=== PATIENT | male | born 1935 | race Caucasian/White ===

== ENCOUNTER 2023-07-09 19:23 | Inpatient (IN) | payer MEDICARE, OTHER, SELFPAY ==
--- NOTE | ~2023-07-09 | CT_ITS ---
EXAMINATION: CT abdomen pelvis wo con DATE: 07/10/2023 00:28 INDICATION: Abdominal pain and distention. Gastrointestinal hemorrhage. TECHNIQUE: Computed tomography (CT) of the abdomen and pelvis was performed without intravenous contr ast. Automated exposure control and iterative reconstruction technique were employed. The dose-length product was 1112.77 mGy-cm. COMPARISON: None. FINDINGS: The visualized portions of the lung bases demonstrate mild atelectasis. A calcified right l raymond nodule and calcified right hilar lymph nodes are consistent with old granulomatous disease. The n asogastric tube is folded on itself in the esophagus. Cardiomegaly is noted. No pericardial effusion. The liver and gallbladder are normal. Calcifications in the spleen are consistent with old granuloma tous disease. The stomach is distended. The pancreas, adrenal glands, and kidneys are normal. The pro state is mildly enlarged. There are scattered diverticula in the colon. There is wall thickening thro ughout the colon. The appendix is not visualized. There is a large volume of ascites. There are no pa thologically enlarged lymph nodes. Aortic atherosclerosis is noted. There is a left inguinal hernia c ontaining fat. Body wall edema is noted. There is mild thoracic spondylosis and severe lumbar spondyl osis. There are chronic compression fractures of T11 and T7. IMPRESSION: 1. Large volume of ascites. 2. Wall thickening in the colon, which may be colitis or interstitial edema. 3. Nasogastric tube folded on itself in the esophagus. 4. Distended stomach. Reviewed, dictated and finalized at location A.
--- NOTE | ~2023-07-09 | XR_ITS ---
EXAMINATION: XR chest 1V portable DATE: 07/09/2023 23:27 INDICATION: Nausea and vomiting. TECHNIQUE: A single frontal view of the chest was obtained. COMPARISON: Chest single view 07/09/2017, CT abdomen and pelvis 07/09/2023 FINDINGS: A calcified right lung nodule and calcified right hilar lymph nodes are consistent with old granulomatous disease. There is mild atelectasis in the lower lung zones. No pleural effusion or pne umothorax. Cardiomegaly is noted. The nasogastric tube is folded on itself in the esophagus with tip in the pharynx. IMPRESSION: 1. Mild atelectasis in the lower lung zones. 2. Cardiomegaly. 3. Nasogastric tube folded on itself in the esophagus with tip in the pharynx. Reviewed, dictated and finalized at location A.
[2023-07-09 19:32] VITALS: BP 113/99; PULSE 88; RESP 12; TEMP 36; O2SAT 100
[2023-07-09 20:04] LABS: Basophils Percent Auto 0.3 % (0.2-1.2); Hematocrit 31.8 % (42.0-52.0); Hemoglobin 10.2 g/dL (14.0-18.0); Immature Granulocyte Percent A 0.7 % (0-0.5); Lymphocytes Absolute Auto 1.34 K/mm3 (0.9-3.2); Lymphocytes Percent Auto 9.5 % (18.3-44.2); Mean Corpuscular HGB Conc 32.1 g/dl (32-36); Mean Corpuscular Volume 102.9 fl (80-100); Mean Platelet Volume 9.8 fl (7.4-10.4); Monocytes Absolute Auto 1.2 K/mm3 (0.1-0.6); Monocytes Percent Auto 8.3 % (2.6-8.5); Neutrophils Absolute Auto 11.5 K/mm3 (1.3-6.7); Neutrophils Percent Auto 81.2 % (45.5-73.1); Platelet Count Result 250 k/mm3 (150-375); Red Blood Count 3.09 M/mm3 (4.6-6.20); Red Cell Distribution Width 15.8 % (11.5-14.5); White Blood Count 14.1 K/mm3 (4.5-10.0)
[2023-07-09 20:18] LABS: Albumin Level 3.3 g/dL (3.5-5.1); Alkaline Phosphatase 221 U/L (38-126); Anion Gap 15 mmol/L (8-16); Aspartate Amino Transferase 42 U/L (17-59); Bilirubin,Total 1.9 mg/dL (0.2-1.3); Blood Urea Nitrogen 40 mg/dL (9-20); Calcium 9.2 mg/dL (8.4-10.2); Carbon Dioxide 17 mmol/L (22-30); Chloride 101 mmol/L (98-107); Estimated Glomerular Filt Rate > 60; Glucose 154 mg/dL (65-110); Lipase 27 U/L (23-300); Potassium 4.3 mmol/L (3.4-5.0); Sodium 133 mmol/L (137-145)
[2023-07-09 20:26] LABS: Alanine Aminotransferase 44 U/L (6-50)
[2023-07-09 20:55] VITALS: BP 130/46; PULSE 91; RESP 23; TEMP 36.8; O2SAT 99
--- NOTE | 2023-07-09 20:58 | PC.NURSE ---
Daughter is at bedside and is medical POA. Patient was asked if he had to urinate and patient stated no. Patient and POA were then asked if a straight catheter could be done to obtain the urine. POA declined the straight catheter.
[2023-07-09] MEDS: PANTOPRAZOLE SODIUM IV 40 MG VIAL 80 MG (23:12)
[2023-07-09] MEDS: SODIUM CHLORIDE 0.9% IV 1,000 ML 999 ML (23:12)
--- NOTE | 2023-07-09 23:19 | PC.NURSE ---
Daughter/POA consents to a straight catheter for urine specimen.
[2023-07-09 23:21] LABS: Alanine Aminotransferase 43 U/L (6-50); Albumin Level 2.8 g/dL (3.5-5.1); Alkaline Phosphatase 171 U/L (38-126); Anion Gap 18 mmol/L (8-16); Aspartate Amino Transferase 44 U/L (17-59); Bilirubin,Total 1.6 mg/dL (0.2-1.3); Blood Urea Nitrogen 44 mg/dL (9-20); Calcium 8.6 mg/dL (8.4-10.2); Carbon Dioxide 14 mmol/L (22-30); Chloride 102 mmol/L (98-107); Estimated Glomerular Filt Rate > 60; Glucose 181 mg/dL (65-110); Lipase 21 U/L (23-300); Potassium 4.8 mmol/L (3.4-5.0); Sodium 134 mmol/L (137-145)
[2023-07-09 23:22] LABS: Troponin I 0.031 ng/mL (0.000-0.034)
[2023-07-09 23:24] LABS: Lactic Acid Reflex 10.8 mmol/L (0.7-2.0)
[2023-07-09 23:38] LABS: Basophils Percent Auto 0.2 % (0.2-1.2); Hematocrit 26.1 % (42.0-52.0); Hemoglobin 8.4 g/dL (14.0-18.0); Immature Granulocyte Absolute 0.12 K/mm3 (0.00-0.031); Immature Granulocyte Percent A 0.9 % (0-0.5); Lymphocytes Absolute Auto 1.13 K/mm3 (0.9-3.2); Lymphocytes Percent Auto 8.7 % (18.3-44.2); Mean Corpuscular HGB Conc 32.2 g/dl (32-36); Mean Corpuscular Hemoglobin 32.8 pg (26-34); Mean Platelet Volume 9.9 fl (7.4-10.4); Monocytes Absolute Auto 0.9 K/mm3 (0.1-0.6); Monocytes Percent Auto 7.3 % (2.6-8.5); Neutrophils Absolute Auto 10.7 K/mm3 (1.3-6.7); Neutrophils Percent Auto 82.9 % (45.5-73.1); Platelet Count Result 221 k/mm3 (150-375); Red Blood Count 2.56 M/mm3 (4.6-6.20); Red Cell Distribution Width 15.8 % (11.5-14.5)
--- NOTE | 2023-07-10 | PC.NURSE ---
Per EDP Dr. Sarmiento NG tube and straight urinary catheter not needed due to patient going comfort care.
--- NOTE | 2023-07-10 00:02 | ED.GENADULT ---
HPI - General Adult General Chief complaint: Abdominal Pain Stated complaint: possible SBO Time Seen by Provider: 07/09/23 23:17 History of Present Illness HPI narrative: this is an 88-year-old male presenting ED with chief complaint of hematemesis. Patient is A&O x1 and does not recall any of the events leading up to his ER visit and has no complaints at this time. Per the patient's family he had an episode of hematemesis vomiting yesterday @ dinner. Today he has not eaten anything at all. Related Data Allergies Allergy/AdvReac Type Severity Reaction Status Date / Time No Known Allergies Allergy Unverified 07/09/17 18:41 [facility] Past Medical History Medical History Dementia Exam Narrative: APPEARANCE: Patient is pale/jaundice, A&O x1 confused and trying to get out of bed Head: atraumatic, dried red blood in the patient's mouth EYES: EOMI, NOSE: Atraumatic NECK: Trachea midline RESPIRATORY: No increased rate of breathing CARDIOVASCULAR: RRR, ABDOMINAL: distended, no guarding or rebound, rectal exam shows profuse melena MUSCULOSKELETAl: No obvious deformities NEURO: Alert. Moving 4/4 extremities SKIN:: Warm, dry. Normal color PSYCHIATRIC: Normal affect Course Vital Signs Vital signs: Vital Signs Temperature 96.8 F L 07/09/23 19:32 Pulse Rate 88 07/09/23 19:32 Respiratory Rate 12 07/09/23 19:32 Blood Pressure 113/99 H 07/09/23 19:32 Pulse Oximetry 100 07/09/23 19:32 Oxygen Delivery Room Air 07/09/23 19:32 Temperature 98.2 F 07/09/23 20:55 Pulse Rate 100 07/10/23 00:37 Respiratory Rate 22 H 07/10/23 00:37 Blood Pressure 102/57 L 07/10/23 00:37 Pulse Oximetry 94 07/10/23 00:37 Oxygen Delivery Room Air 07/09/23 19:32 Medical Decision Making [facility] Narrative Medical decision making narrative: -Presentation: 88-year-old male presenting with upper GI bleed. HGB downtrending. Lactic is 10.8. Ill appearing. Goals of care were discussed with the patient's daughter ([facility] POA [phone]) and . They do not believe that the patient would want any heroic interventions. In accordance with the patients and families wishes the patient has been made comfort care only. Patient will be admitted to the hospital for hospice/ care coordination. -DDX includes but is not limited to: Peptic ulcer disease, gastritis, esophageal varices, bowel perforation. -Co-morbidities complicating care: dementia, hypertension, diabetes -Social determinants of health: dementia, lives in [place] -Independent interpretation of studies: lactic 10.8. CT showed ascites and liver cirrhosis. Hemoglobin dropped from 10.2 to 8.4 over 2 hours. BUN 44. Likely from upper GI bleed. Chest x-ray unremarkable. Independent EKG interpretation: Rhythm AFib Rate [100], [place] -[normal], [place] -[normal], QRS [ wide], QTC [normal], T waves -[negative for concerning inversions], ST Segments - [Negative for concerning elevations] Final interpretations: AFib with RVR and right bundle-branch block. -Discussion of Management/Consultants: Pj-hospitalist -Interventions: 80 mg IV Protonix 1 L normal saline, 1 mg Dilaudid, 1 mg Ativan -Shared decision making / Disposition: patient will be admitted for Hospice/end of life care. Vital Signs Vital Signs: Vital Signs Temperature 96.8 F L 07/09/23 19:32 Pulse Rate 88 07/09/23 19:32 Respiratory Rate 12 07/09/23 19:32 Blood Pressure 113/99 H 07/09/23 19:32 Pulse Oximetry 100 07/09/23 19:32 Oxygen Delivery Room Air 07/09/23 19:32 Temperature 98.2 F 07/09/23 20:55 Pulse Rate 100 07/10/23 00:37 Respiratory Rate 22 H 07/10/23 00:37 Blood Pressure 102/57 L 07/10/23 00:37 Pulse Oximetry 94 07/10/23 00:37 Oxygen Delivery Room Air 07/09/23 19:32 Lab Data 07/09/23 22:30 07/09/23 22:30 Labs: Lab Results 07/09/23
[2023-07-10] MEDS: HYDROmorphone HCL INJ (*CRX) 1 MG/ML SYR IV PUSH (00:20)
[2023-07-10] MEDS: LORazepam INJ (*CRX) 2 MG/ML VIAL 1 MG IV PUSH ×2 (00:22→13:06)
--- NOTE | 2023-07-10 00:24 | PC.NURSE ---
Patient began vomiting. Notified EDP Dr. Sarmiento who verbally ordered 8mg Zofran IVP and 10mg Reglan IVP.
[2023-07-10] MEDS: ONDANSETRON INJ 4 MG/2 ML VIAL 8 MG IV PUSH (00:27)
[2023-07-10] MEDS: METOCLOPRAMIDE HCL INJ 10 MG/2 ML VIAL IV PUSH (00:34)
[2023-07-10 00:37] VITALS: BP 102/57; PULSE 100; RESP 22; O2SAT 94
--- NOTE | 2023-07-10 00:38 | PC.NURSE ---
Per EDP Dr. Guillermina santoyo blue kiran not needed as patient is comfort care.
--- NOTE | 2023-07-10 01:05 | PM.IMHP ---
H&P: HPI History of Present Illness Date/Time: 07/10/23 01:05 Chief Complaint: Vomiting Narrative: 80-year-old male with a past medical history of gout, dementia, neuropathy, diabetes essential hypertension, overactive bladder and BPH who presented to the ER from home in the company of family due to decreased oral intake and vomiting. The patient has not been eating as much for the last week. The family states that the patient will not complain about any symptoms. He is usually alert oriented x2 at best due to his dementia. She they state that he has is routine answers and he will always tell you that nothing is wrong. However today he refused eat breakfast in pushed the plate away from him. Then for lunch before he could eat anything he had several episodes of what sounds like moderate to large volume emesis. He was still denying any abdominal pain. The daughter and the are at bedside. The is only able to provide limited history. The daughter states that they did not contact her until this evening to states that he was not acting right. The daughter states that the patient has had a round belly at times during his life. But she thinks that his abdomen may be more distended than usual. CT scan was performed which demonstrated colonic diverticulosis, no diverticulitis, mild mucosal thickening in the transverse colon and underdistention versus mild nonspecific colitis. The stomach is distended with food products and no evidence of bowel obstruction. The patient's liver appeared cirrhotic with a moderate volume of ascites. The daughter denies any known history of cirrhosis. She reports the patient on a goes to the doctor 1 to 2 times a year and is relatively healthy. Patient ambulated into the ER with his relating walker. Shortly after arriving to the ER the patient had a moderate amount of black and bloody appearing emesis and he had a melenic bowel movement. Initial hemoglobin in the ER was 10.2 and after 1 L of fluid the patient's hemoglobin had already dropped to 8.4 in 2 hours. Patient was having continued and intractable vomiting. He had marked lactic acidosis and appeared acutely ill. The daughter was already concerned with the amount of interventions the patient was receiving in the ER in that her father would not tolerate aggressive or heroic measures. She felt he would not want heroic measures in this situation. Subsequently and the patient is being admitted for comfort measures. The patient and his reside at [facility]. The patient has never been seen here before the majority the history comes from the patient's daughter at bedside. [facility] Past Medical History Medical History (Updated 07/10/23 @ 06:19 by Zena Oliva DO) Atrial fibrillation BPH (benign prostatic hyperplasia) Dementia Diabetic neuropathy Essential hypertension Gout Type 2 diabetes mellitus Surgical History Surgical History (Updated 07/10/23 @ 06:05 by Zena Oliva DO) Status post cataract extraction of both eyes with insertion of intraocular lens Family History Family History (Updated 07/10/23 @ 06:05 by Zena Oliva DO) Other Unknown family medical history Social History Social History (Updated 07/10/23 @ 06:08 by Zena Oliva DO) Social History: The patient lives at [facility] with his of at least 55 years. They had 2 children. He is a lifelong nonsmoker. He used to drink a martini nightly but has not done so in several years. Code status: DNR/DNI Healthcare power of regulatory attorney: Beth (daughter) Smoking status: Never smoker Second hand tobacco smoke exposure: No Alcohol intake: never Substance use: never Substance use type: does not use Lack of Transportation: No Lack of Food: Never True Current Housing: I Have Housing Concerned About Future Housing: No Difficulty Paying Gas/Electric Bills: No Difficulty Paying for Meds: No Cu
[2023-07-10 01:40] VITALS: BP 110/48; PULSE 97; RESP 14; O2SAT 91
[2023-07-10 02:20] LABS: Reflex Lactic Acid Yes or No Add Lactic
[2023-07-10 02:26] VITALS: BP 109/62; PULSE 67; RESP 16; TEMP 36.2; O2SAT 93
[2023-07-10 02:27] VITALS: BMI 26.1
--- NOTE | 2023-07-10 02:32 | ADMGEN ---
This patient, Pelon Guerrero, was admitted to [facility] Surg Room 302-01. Patient/family oriented to hospital policies and general routines including ID bracelet, bed and alarms, visiting hours, pain management, procedures, bathroom and other care routines, personal items, smoking policy, room service/diet, and visiting hours. Information on how to activate the Rapid Response Team has been discussed. Patient/Family are encouraged to report perceived risks to care and to ask questions if they do not understand what they are told or what they should do.
[2023-07-10 03:34] LABS: Lactic Acid 8.7 mmol/L (0.7-2.0)
[2023-07-10 08:00] VITALS: BP 149/82; PULSE 89; RESP 16; TEMP 36.3; O2SAT 93
[2023-07-10] MEDS: MORPHINE SULFATE (*CRX) 2 MG/ML INJ IV PUSH ×2 (13:04→15:39)
--- NOTE | 2023-07-10 15:16 | PM.DS ---
DS: Admitting Diagnosis Discharge Date 07/10/23 Admitting Diagnosis hospice DS: Discharge Diagnosis Discharge Diagnosis (1) Admission for palliative care: Code(s): Z51.5 - Encounter for palliative care Status: Acute DS: Summary Hospital Course Hospital Course: patient is terminally ill. he was admitted and cpmfort care orders started. he is being discharged back to the facility with hospice. Time Spent with Patient Time attestation: Total time spent providing and/or coordinating discharge services: DS: Data Data Completed and Pending Labs on day of discharge: Labs from last 24 hours 07/10/23 07/09/23 07/09/23 03:13 22:30 19:47 WBC 13.0 H 14.1 H RBC 2.56 L 3.09 L Hgb 8.4 L 10.2 L Hct 26.1 L 31.8 L MCV 102.0 H 102.9 H MCH 32.8 33.0 MCHC 32.2 32.1 RDW 15.8 H 15.8 H Plt Count 221 250 MPV 9.9 9.8 Immature Gran % (Auto) 0.9 H 0.7 H Neut % (Auto) 82.9 H 81.2 H Lymph % (Auto) 8.7 L 9.5 L [place] % (Auto) 7.3 8.3 Eos % (Auto) 0.0 0.0 Baso % (Auto) 0.2 0.3 Lymph # (Auto) 1.13 1.34 [place] # (Auto) 0.9 H 1.2 H Eos # (Auto) 0.0 0.0 Baso # (Auto) 0.0 0.0 Abs Immat Gran (auto) 0.12 H 0.10 H Absolute Neuts (auto) 10.7 H 11.5 H Absolute Nucleated RBC 0.0 0.0 Nucleated RBC % 0.0 0.0 PT Cancelled INR Cancelled APTT Cancelled Sodium 134 L 133 L Potassium 4.8 4.3 Chloride 102 101 Carbon Dioxide 14 L 17 L Anion Gap 18 H 15 BUN 44 H 40 H Creatinine 0.90 1.00 Estim Creat Clear Calc Not Reportable Not Reportable Estimated GFR > 60 > 60 Glucose 181 H 154 H Lactic Acid 8.7 H* 10.8 H* Calcium 8.6 9.2 Total Bilirubin 1.6 H 1.9 H AST 44 42 ALT 43 44 Alkaline Phosphatase 171 H 221 H Troponin I 0.031 Total Protein 6.0 L 7.0 Albumin 2.8 L 3.3 L Lipase 21 L 27 Blood Type Antibody Screen 07/09/23 08:37 WBC RBC Hgb Hct MCV MCH MCHC RDW Plt Count MPV Immature Gran % (Auto) Neut % (Auto) Lymph % (Auto) [place] % (Auto) Eos % (Auto) Baso % (Auto) Lymph # (Auto) [place] # (Auto) Eos # (Auto) Baso # (Auto) Abs Immat Gran (auto) Absolute Neuts (auto) Absolute Nucleated RBC Nucleated RBC % PT INR APTT Sodium Potassium Chloride Carbon Dioxide Anion Gap BUN Creatinine Estim Creat Clear Calc Estimated GFR Glucose Lactic Acid Calcium Total Bilirubin AST ALT Alkaline Phosphatase Troponin I Total Protein Albumin Lipase Blood Type O Positive Antibody Screen Negative Discharge Plan Discharge Discharging Clinician: Ildefonso Griffin Anticipated Discharge Date/Time: 07/10/23 15:15 Patient Disposition: Hospice - Medical Facility Activity: no preference Diet: regular Patient Instructions: Comfort Measures (GEN) Stand Alone Forms: General Discharge Information Follow-up/Referrals: Jd,DALE Zamarripa Jr. [Primary Care Provider] - Discharge Medications: Continued donepezil 10 mg tablet 10 mg PO DAILY metformin 850 mg tablet 850 mg PO BID allopurinol 100 mg tablet 100 mg PO DAILY hyoscyamine sulfate [Symax-SR] 0.375 mg tablet extended release 12 hr 0.375 mg PO BID tamsulosin 0.4 mg capsule 0.4 mg PO DAILY gabapentin 300 mg capsule 300 mg PO TID hydrochlorothiazide 25 mg tablet 25 mg PO DAILY oxybutynin chloride 5 mg tablet 5 mg PO BID glipizide 5 mg tablet 5 mg PO BID memantine 10 mg tablet 10 mg PO BID hydrocodone-acetaminophen [Sun] 5-325 mg Tablet 1 tablet PO Q6H PRN (Reason: Pain) ibuprofen 600 mg Tablet 600 mg PO Q6H PRN (Reason: Pain) cholecalciferol (vitamin D3) 125 mcg (5,000 unit) Tablet 125 mcg PO DAILY PreserVision AREDS-2 250-90-40-1 mg Capsule 1 tablet PO BID Adult Aspirin 81 mg Tablet 325 mg PO DAILY Date of admission: 07/10/23 10:17 Primary Care Prov
== END 2023-07-10 16:30 | DRG 378 ==
LOC: ANHED 07-10 00:40 → ANH3MEDSUR 07-10 01:33
PROVIDERS: Admitting Provider Internal Medicine; Emergency Provider Emergency Medicine; PCP Physician Assistant; Visit Provider Hospitalist
DX: K92.2 Gastrointestinal hemorrhage, unspecified (principal); E87.21 Acute metabolic acidosis; F03.90 Unspecified dementia, unspecified severity, without behavioral disturbance, psychotic disturbance, mood disturbance, and anxiety; I10 Essential (primary) hypertension; E11.42 Type 2 diabetes mellitus with diabetic polyneuropathy; N40.0 Benign prostatic hyperplasia without lower urinary tract symptoms; N32.81 Overactive bladder; D53.1 Other megaloblastic anemias, not elsewhere classified; K74.60 Unspecified cirrhosis of liver; I48.91 Unspecified atrial fibrillation; Z66 Do not resuscitate; Z51.5 Encounter for palliative care; Z98.49 Cataract extraction status, unspecified eye
CPT/HCPCS: 36415; 71045; 74176; 80053; 83605; 83690; 84484; 85025; 85610; 85730; 86850; 86900; 86901; 96361; 96374; 96375; 99285; A9270; C9113; G0378; J1170; J2060; J2270; J2405; J2765; J7030